=== PATIENT | male | born 1955 | race Caucasian/White ===

== ENCOUNTER 2018-01-20 21:45 | Emergency (ER) | payer MEDICARE, MEDICAID ==
[~2018-01-20] VITALS: Ht 165.1 cm; Wt 84.0 kg
[2018-01-20 23:47] LABS: CLARITY URINE CLEAR (CLEAR); COLOR URINE YELLOW (YELLOW); KETONES URINE NEGATIVE (NEGATIVE); LEUKOCYTE ESTERASE URINE NEGATIVE (NEGATIVE); NITRITE URINE NEGATIVE (NEGATIVE); OCCULT BLOOD URINE NEGATIVE (NEGATIVE); PH URINE 6.5 (4.5-8.0); PROTEIN URINE NEGATIVE (NEGATIVE); SPECIFIC GRAVITY URINE 1.012 (1.005-1.030); UROBILINOGEN URINE 0.2 E.U./dL (0.2-1.0)
[2018-01-21 01:25] VITALS: BP 128/71
== END 2018-01-21 01:33 | disposition home or self-care (01) ==
LOC: ER 21:45
DX: B35.6 Tinea cruris (principal); R21 Rash and other nonspecific skin eruption; R30.0 Dysuria; I10 Essential (primary) hypertension; E78.00 Pure hypercholesterolemia, unspecified; Z98.890 Other specified postprocedural states
CPT/HCPCS: 99283